=== PATIENT | female | born 1950 | race Caucasian/White ===

== ENCOUNTER 2023-04-29 09:00 | Outpatient (RCR) | payer OTHER, SELFPAY | END 2023-04-29 23:59 | disposition home or self-care (01) | LOC: RPT 09:00 | PROVIDERS: ATTENDING PHYSICIAN Family Medicine | DX: M54.50 Low back pain, unspecified (principal); M79.605 Pain in left leg; R26.2 Difficulty in walking, not elsewhere classified | CPT/HCPCS: 97010; 97110; 97112; 97140; 97162 ==

== ENCOUNTER 2023-05-05 08:56 | Outpatient (RCR) | payer OTHER, SELFPAY | END 2023-05-24 11:43 | disposition home or self-care (01) | LOC: RPT 08:56 | PROVIDERS: ATTENDING PHYSICIAN Family Medicine | DX: M54.50 Low back pain, unspecified (principal); Z73.6 Limitation of activities due to disability; R26.2 Difficulty in walking, not elsewhere classified | CPT/HCPCS: 97010; 97110; 97112 ==

== ENCOUNTER 2024-04-17 11:08 | Emergency (ER) | payer OTHER, SELFPAY ==
[2024-04-17 11:21] VITALS: BP 119/78
--- NOTE | 2024-04-17 12:14 | ED.GENMED ---
History of Present Illness
General
Chief Complaint: Fall
Exam Limitations: none
Time Seen by Provider: 04/17/24 11:43
Nursing documentation reviewed up to this point in time: agreed with
History of Present Illness
History of Present Illness:
Patient is a 73-year-old female who presents to the ER after fall. Patient was carrying something and it was heavy and she tripped and landed on her face and nose. She does have a headache she denies loss of consciousness. Her nose did bleed
however is now resolved. She is not on blood thinners. Does complain of soreness below her left eye and on her nose. She does have a headache. She is unsure of last tetanus
Review of Systems
Review of Systems
Allergies reviewed?: Yes
All Other Systems: ROS reviewed and negative except as documented in HPI and ROS
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
Respiratory: Reports no symptoms
Cardiac: Reports no symptoms
ABD/GI: Reports no symptoms; Denies nausea or vomiting
: Reports no symptoms
Musculoskeletal: Reports no symptoms
Skin: Reports no symptoms
Neurological: Reports headache and other (no LOC )
Psychiatric: Reports no symptoms
Phy Exam
General Physical Exam
General Presentation: no apparent distress
General age: appears stated age
General Skin: warm and dry
General Habitus: normal
General Mental: alert
ENT Exam
ENT Exam: other (+ small abrasion to nose; dried blood to b/l nares no active bleeding mildly sore to palpation )
Eye Exam
Eye Exam: PERRL and EOMI
Neurological Exam
Neurological Exam: alert and oriented x3
Musculoskeletal Exam
Musculoskeletal Exam: full ROM
Skin Exam
Skin Exam: normal color and warm/dry
Psychiatric Exam
Psychiatric Exam: normal mood/affect
Course
Orders/Labs/Results
Orders:
Orders
04/17/24 12:09
CT Cervical Spine W/o Iv Contr Urgent
Comment:
Reason For Exam: trauma
CT Head W/o Iv Contrast Urgent
Comment:
Reason For Exam: trauma
04/17/24 12:13
CT Facial Bones W/o Iv Contras Urgent
Comment:
Reason For Exam: trauma
04/17/24 12:14
Tetanus/Diphth/Acelpertussis [Adacel] 0.5 ml IM .ONCE ONE
04/17/24 13:47
Acetaminophen [Tylenol] 650 mg PO NOW STA
Vital Signs
Initial and Last Documented VS:
Initial Vital Signs
Temp Pulse Resp BP Pulse Ox
98.1 F 83 18 119/78 98
04/17/24 11:21 04/17/24 11:21 04/17/24 11:21 04/17/24 11:21 04/17/24 11:21
Last Documented Vital Signs
Temp Pulse Resp BP Pulse Ox
98.1 F 83 18 119/78 98
04/17/24 11:21 04/17/24 11:21 04/17/24 11:21 04/17/24 11:21 04/17/24 11:21
*Radiology
Radiology exam reviewed: radiology read reviewed
*Pulse Oximetry
Patient hypoxic: no
*Critical Care Note
Total Time (30-74mins, 75-104mins- exclusive of procedures): Not Applicable
ED Attending Note
-
Portions of this chart may have been created with voice recognition software.� Occasional wrong word or��sound alike� substitutions may have occurred due to the inherent limitations of voice recognition software.
Discharge Plan
Departure
Patient Disposition: Home (Routine Discharge)
Date of Disposition: 04/17/24
Time of Disposition: 13:46
Patient with high blood pressure during this ER visit?: No
Condition: Fair
Covid-19: Not Applicable
Discharge Problem:
Closed fracture nasal bone, Abrasion, Contusion
Instructions: Nose Fracture ED, Abrasions - ED discharge instructions, Contusion
Referrals:
Prashanth Peterson MD [Family Provider] -
Curry Darling MD [Active] -
Activity Restrictions/Additional Instructions:
Wash abrasions with soap and water twice a day apply small layer of antibiotic to the area. He may take Tylenol as needed. As discussed you do have a nasal bone fracture. Follow-up with your family doctor in the next several days for reevaluation
and agricultural research technologist if needed. Return if any worsening of symptoms.
Interventions
Interventions:
*Risk Screen - Suicide Last Done: 04/17/24 11:21
*General Assessment Last Done: 04/17/24 11:21
*Neglect/Abuse Screening Last Done: 04/17/24 11:21
ED- Fall Risk Assessment Last Done: 04/17/24 12:24
*ED COVID-19 Vaccine History Last Done: 04/17/24 11:21
ED-Musculoskeletal Assessment Last Done: 04/17/24 12:24
ED- Neurological Assessment Last Done: 04/17/24 12:24
ED-Skin Assessment Last Done: 04/17/24 12:24
Discharge Date and Time
Print Language: ARMENIAN
[2024-04-17] MEDS: ADACEL 0.5 ML IM (12:21)
[2024-04-17 12:24] VITALS: BMI 27.5
[2024-04-17] MEDS: TYLENOL 650 MG PO (13:51)
== END 2024-04-17 14:10 | disposition home or self-care (01) ==
LOC: EMR 11:08
PROVIDERS: EMERGENCY PHYSICIAN Emergency Medicine; FAMILY PHYSICIAN Family Medicine
DX: S02.2XXA Fracture of nasal bones, initial encounter for closed fracture (principal); S00.31XA Abrasion of nose, initial encounter; R51.9 Headache, unspecified; T14.8XXA Other injury of unspecified body region, initial encounter; R04.0 Epistaxis; W01.0XXA Fall on same level from slipping, tripping and stumbling without subsequent striking against object, initial encounter; Z23 Encounter for immunization; I10 Essential (primary) hypertension; E03.9 Hypothyroidism, unspecified; E78.5 Hyperlipidemia, unspecified; Z96.652 Presence of left artificial knee joint
CPT/HCPCS: 99284; 90471; 70450; 70486; 72125; 90715

== ENCOUNTER 2024-12-14 06:15 | Day surgery (SDC) | payer OTHER, SELFPAY ==
[2024-12-14 07:41] LABS: Glucose - Point of Care 102 mg/dl (70-99)
== END 2024-12-14 13:39 | disposition home or self-care (01) ==
LOC: GI 06:15
PROVIDERS: ATTENDING PHYSICIAN Internal Medicine Gastroenterology; FAMILY PHYSICIAN Family Medicine
DX: Z12.11 Encounter for screening for malignant neoplasm of colon (principal); K57.30 Diverticulosis of large intestine without perforation or abscess without bleeding; K64.8 Other hemorrhoids; K55.20 Angiodysplasia of colon without hemorrhage; Z86.0100 Personal history of colon polyps, unspecified
CPT/HCPCS: G0105; 82962